=== PATIENT | female | born 1955 | race Caucasian/White ===

== ENCOUNTER 2019-09-13 13:07 | Emergency (ER) | payer OTHER ==
[~2019-09-13] VITALS: Ht 170.2 cm; Wt 72.6 kg
--- NOTE | 2019-09-13 13:15 | NUR ---
LOWER BACK PAIN S/P GLF. PATIENT A/OX4, BREATHING EVEN AND UNLABORED, NO SOB NOTED. KEPT COMFORTABLE.
--- NOTE | 2019-09-13 13:45 | NUR ---
PATIENT TAKEN TO CT.
--- NOTE | 2019-09-13 15:13 | NUR ---
Patient is resting comfortably in bed with eyes closed. Easily aroused.
[2019-09-13] MEDS ORDERED: KETOROLAC TROMETHAMINE 15 MG/ML VIAL ONE (15:45)
[2019-09-13] MEDS ORDERED: KETOROLAC TROMETHAMINE INJ 30 MG/ML VIAL IM ONE (16:00)
--- NOTE | 2019-09-13 16:13 | NUR ---
PATIENT AMBULATES WITH SLOW BUT STEADY GAIT, WITH A RIGHTKNEE IMMOBILIZER. Patient discharged to home in stable condition. Written and verbal after care instructions given. Patient verbalizes understanding of instruction.
[2019-09-13 16:14] VITALS: BP 107/54
== END 2019-09-13 16:14 | disposition home or self-care (01) ==
LOC: ER 13:08
DX: S30.0XXA Contusion of lower back and pelvis, initial encounter (principal); M25.552 Pain in left hip; M25.561 Pain in right knee; G89.29 Other chronic pain; M54.2 Cervicalgia; W01.0XXA Fall on same level from slipping, tripping and stumbling without subsequent striking against object, initial encounter; Y93.89 Activity, other specified; Y92.89 Other specified places as the place of occurrence of the external cause; Y99.8 Other external cause status
CPT/HCPCS: 29505; 72131; 73564; 73700; 99284; J1885